=== PATIENT | male | born 2005 | race Two or more races ===

== ENCOUNTER 2023-08-16 22:49 | Emergency (ER) | payer OTHER, SELFPAY ==
[2023-08-16 22:52] VITALS: BP 129/79; PULSE 90; O2SAT 99
[2023-08-16 22:55] VITALS: BP 126/76; PULSE 88; RESP 16; TEMP 37.1; O2SAT 98; BMI 19.7
--- OUTSIDE RECORDS SUMMARY | 2023-08-17 00:01 | XMS_ITS | Continuity of Care Document ---
Author Name Unknown Organization [facility] Address [address] [place] [address]- Care Team Providers Care Director Sales And Trade Marketing Name Role Phone Key ARZOLA, Mira Castillo Primary Care Physician Encounter [facility] Date(s): 02/10/20 - 02/20/20 [facility] [address] [place] [address]- Attending Physician: Malina Oconnor Admitting Physician: AdmtrMalina Referring Physician: Admtr, Ar8 Allergies, Adverse Reactions, Alerts No Known Medication Allergies Substance Reaction Severity Status Other Environmental Allergy 1 Active 1per Mom, seasonal Immunizations Given and Recorded Vaccine Date Status Refusal Reason influenza virus vaccine, inactivated 1 11/12/19 Gi kelsea influenza virus vaccine, inactivated 2 12/17/18 Gi kelsea tetanus/diphtheria/pertussis, acel(Tdap) 08/17/16 Recorded Diphth/pertussis,acel/tetanus/polio 10/07/07 Recor ded Measles/Mumps/Rubella/VaricellaVirusVac 10/07/07 R ecorded diphtheria/tetanus/pertussis, acel(DTaP) 03/13/05 Recorded pneumococcal 13-valent vaccine 03/13/05 Recorded pneumococcal 13-valent vaccine 11/21/04 Recorded pneumococcal 13-valent vaccine 03 Recorded pneumococcal 13-valent vaccine 03 Recorded Haemophilus B Conj Vaccine (oldterm) 11/21/04 Peter rded Haemophilus B Conj Vaccine (oldterm) 06/12/04 Peter rded Haemophilus B Conj Vaccine (oldterm) 03 Peter rded Measles/Mumps/Rubella Virus Vaccine 08/24/04 Recor ded Varicella Virus Vaccine 08/24/04 Recorded Diphth/HepB/Pertussis,Acel/Polio/Tet 03/01/04 Peter rded Diphth/HepB/Pertussis,Acel/Polio/Tet 03 Peter rded Diphth/haemophilus/pertussis/tet/polio 03 Re corded Hepatitis B Vaccine (old term) 03 Recorded Hepatitis B Vaccine (old term) 03 Recorded 1Result Comment: 23582-292-61 2Result Comment: 16392-441-86 Medications Adderall XR 30 mg oral capsule, extended release 1 capsule = 30 mg, By Mouth, Daily in AM, dx: ADHD MassPAT reviewed, # 30 capsule, 0 Refills, Maintenance, 06/02/19 16:11:22 EDT, ER Capsule Start Date: 06/02/19 Stop Date: 07/02/19 Status: Ordered melatonin 3 mg oral tablet 1 tablet = 3 mg, By Mouth, Daily at bedtime, PRN for insomnia, # 60 tablet, 1 Refills, Maintenance,02/13/19 15:13:30 EDT, Tablet Start Date: 02/13/19 Status: Ordered sertraline 25 mg oral tablet 1 tablet = 25 mg, By Mouth, Daily, # 30 tablet, 0 Refills, Maintenance, 05/14/19 14:47:39 EDT Start Date: 05/14/19 Status: Ordered Problem List Condition Effective Dates Status Health Status Inform ant ADHD, predominantly inattent gabe type(Confirmed) Active Learning disability(Confirmed) Active 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
--- OUTSIDE RECORDS SUMMARY | 2023-08-17 00:01 | XMS_ITS | Continuity of Care Document ---
Author Name Unknown Organization [facility] Address [address] [place] [address]- Care Team Providers Care Tariff Expert Name Role Phone Key ARZOLA, Mira Castillo Primary Care Physician Encounter [facility] [place] Date(s): 12/14/19 - 12/24/19 [facility] [address] [place] [address]- Attending Physician: Malina Oconnor Admitting Physician: Admtr, Malina Referring Physician: Admtr, Ar8 Allergies, Adverse Reactions, [...] Vaccine (old term) 03 Recorded 1Result Comment: [id number] 2Result Comment: 80294-449-60 Medications Adderall XR 30 mg oral capsule, [...]
--- OUTSIDE RECORDS SUMMARY | 2023-08-17 00:01 | XMS_ITS | Continuity of Care Document ---
Author Name Unknown Organization [facility] Address [address] [place] [address]- Care Team Providers Care Sour Bleaching Pleater Name Role Phone Rajni Ashley DO Primary Care Physicia n [facility]counter [facility] Date(s): 01/03/23 - 02/02/23 [facility] [address] [place] [address]- Allergies, Adverse Reactions, Alerts No Known Medication Allergies Substance Reaction Severity Status Other Environmental Allergy 1 Active 1per Mom, seasonal Immunizations Given and Recorded Vaccine Date Status Refusal Reason Hepatitis A Pediatric Vaccine 1 12/22/21 Given Hepatitis A Pediatric Vaccine 2 01/17/21 Given influenza virus vaccine, inactivated 3 12/22/21 Gi kelsea influenza virus vaccine, inactivated 4 11/04/20 Gi kelsea influenza virus vaccine, inactivated 5 11/12/19 Gi kelsea influenza virus vaccine, inactivated 6 12/17/18 Gi kelsea SARS-CoV-2 (COVID-19) mRNA BNT-162b2 vac 07/21/21 Recorded SARS-CoV-2 (COVID-19) mRNA BNT-162b2 vac 06/30/21 Recorded Meningococcal Conjugate Vaccine 7 01/17/21 Given Meningococcal Conjugate Vaccine 11/10/14 Recorded Human Papillomavirus Vaccine 01/09/17 Recorded Human Papillomavirus Vaccine 03/07/16 Recorded Human Papillomavirus Vaccine 01/02/16 Recorded tetanus/diphtheria/pertussis, acel(Tdap) 08/17/16 Recorded influ virus vac, H1N1, inactive(oldterm) 10/11/09 Recorded Measles/Mumps/Rubella/VaricellaVirusVac 10/07/07 R ecorded Diphth/pertussis,acel/tetanus/polio 10/07/07 Recor ded pneumococcal 13-valent vaccine 03/13/05 Recorded pneumococcal 13-valent vaccine 11/21/04 Recorded pneumococcal 13-valent vaccine 03 Recorded pneumococcal 13-valent vaccine 03 Recorded diphtheria/tetanus/pertussis, acel(DTaP) 03/13/05 Recorded Haemophilus B Conj Vaccine (oldterm) 11/21/04 Peter rded Haemophilus B Conj Vaccine (oldterm) 06/12/04 Peter rded Haemophilus B Conj Vaccine (oldterm) 03 Peter rded Varicella Virus Vaccine 08/24/04 Recorded Measles/Mumps/Rubella Virus Vaccine 08/24/04 Recor ded Diphth/HepB/Pertussis,Acel/Polio/Tet 03/01/04 Peter rded Diphth/HepB/Pertussis,Acel/Polio/Tet 03 Peter rded Diphth/haemophilus/pertussis/tet/polio 03 Re corded Hepatitis B Vaccine (old term) 03 Recorded Hepatitis B Vaccine (old term) 03 Recorded 1Result Comment: 3130-5597-51 2Result Comment: [id number] 3Result Comment: 13950-361-71 4Result Comment: 97596-193-70 5Result Comment: 10398-521-41 6Result Comment: 09837-079-73 7Result Comment: [id number] Medications Nicotine 2 mg gum 1 each = 2 mg, Chew, Every 2 hours, PRN as needed for smoking cessation, Use one gum up to every two hours for nicotine replacement therapy. Do not exceed 12 pieces in any 24 hour period. Take as directed on package labeling, # 40 each, 1 Refills, Stormy... Start Date: 01/02/23 Status: Ordered nicotine 2 mg oral transmucosal lozenge 1 lozenge = 2 mg, By Mouth, Every 2 hours, Take one lozenge up to every 2 hours for nicotine replacement therapy. Do not exceed 12 lozenges in a 24 hour period. As directed on package labeling. Do not chew or swallow whole., # 72 lozenge, 1 Refills,... Start Date: 01/02/23 Status: Ordered Nicotine 7 mg/24 hour patch 1 patch, Topically, Daily, Apply in the morning. Take off before sleep., # 30 patch, 1 Refills, Maintenance, 01/02/23 8:42:00 EST, Patch, [id number], Partial fill upon patient request if the prescription is for a schedule II opioid drug., 1 pa... Start Date: 01/02/23 Status: Ordered Problem List Condition Confirmation Course Effective Dates Status H ealth Status Informant ADHD, predominantly inattentive type Confirmed Active Learning disability Confirmed Active Insomnia due to drug Confirmed Active Healthy child on routine physical examination Confirmed Active Social History Social History Type Response Smoking Status Never (less than 100 in lifetime); Tobacco user in household: No entered on: 12/17/18 Sex Patient Care team information Care Team Personnel Name: Rajni Ashley DO Position: [facility] Resident Member Role: PCP Address: Address: [address] [place] [address] [place] [address]- Care Team Related Persons Name: MARA HARRIS Address: home [address] [place] [address] Name: JAYCEE LIGHT Address: [place] [address] [place] [address]
--- OUTSIDE RECORDS SUMMARY | 2023-08-17 00:01 | XMS_ITS | Continuity of Care Document ---
Author Name Unknown Organization [facility] Address [address] [place] [address]- Care Team Providers Care Account Manager Employee Benefits Name Role Phone Key ARZOLA, Mira Castillo Primary Care Physician ( [phone] [facility]counter [facility] Date(s): 05/10/21 - 06/09/21 [facility] [address] [place] [address]- Attending Physician: AdmMalina freeman Admitting Physician: Admtr, Ar8 Referring Physician: Admtr, Ar8 Allergies, Adverse Reactions, Alerts No Known Medication Allergies Substance Reaction Severity Status Other Environmental Allergy 1 Active 1per Mom, seasonal Immunizations Given and Recorded Vaccine Date Status Refusal Reason Hepatitis A Pediatric Vaccine 1 01/17/21 Given Meningococcal Conjugate Vaccine 2 01/17/21 Given Meningococcal Conjugate Vaccine 11/10/14 Recorded influenza virus vaccine, inactivated 3 11/04/20 Gi kelsea influenza virus vaccine, inactivated 4 11/12/19 Gi kelsea influenza virus vaccine, inactivated 5 12/17/18 Gi kelsea Human Papillomavirus Vaccine 01/09/17 Recorded Human Papillomavirus [...] Vaccine (old term) 03 Recorded 1Result Comment: [id number] 2Result Comment: [id number] 3Result Comment: 54525-580-55 4Result Comment: 68000-846-68 5Result Comment: 00176-757-30 Medications Adderall XR 30 mg oral capsule, extended release 1 capsule = 30 mg, By Mouth, Daily in AM, dx: ADHD MassPAT reviewed, # 30 capsule, 0 Refills, Maintenance, 06/02/19 16:11:22 EDT, ER Capsule Start Date: 06/02/19 Stop Date: 07/02/19 Status: Ordered ibuprofen 200 mg oral tablet 600 mg, 3, tablet, By Mouth, Every 6 hours, PRN, back pain, # 100 tablet, Refills 0, Tot. Refills 0, Maintenance, Other, 05/10/21 15:30:00 EDT, Route to Pharmacy Electronically, [facility]/pharmacy #[id number], Partial fill upon patient request if the prescription... 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
--- OUTSIDE RECORDS SUMMARY | 2023-08-17 00:01 | XMS_ITS | Continuity of Care Document ---
Author Name Unknown Organization [facility] Address [address] [place] [address]- Care Team Providers Care Enamel Dipper Name Role Phone Rajni Ashley DO Primary Care Physicia n Encounter [facility] Date(s): 02/13/23 - 03/15/23 [facility] [address] [place] [address]- Allergies, Adverse Reactions, Alerts No Known Medication [...] Vaccine (old term) 03 Recorded 1Result Comment: 4258-8630-56 2Result Comment: [id number] 3Result Comment: 39906-961-78 4Result Comment: 71309-900-42 5Result Comment: 00629-054-59 6Result Comment: 61892-103-08 7Result Comment: [id number] Medications Nicotine 2 mg gum 1 each [...] Refills, Maintenance, 01/02/23 8:42:00 EST, Patch, [id number], Partial fill upon patient request if the [...] Team Personnel Name: Rajni Ashley DO Position: [facility] Resident Member Role: PCP Address: Address: [address] [place] [address] [place] [address]- Care Team Related Persons Name: MARA HARRIS Address: home [address] [place] [address] Name: JAYCEE LIGHT Address: [place] [address] [place] [address]
--- OUTSIDE RECORDS SUMMARY | 2023-08-17 00:01 | XMS_ITS | Continuity of Care Document ---
Author Name Unknown Organization [facility] Address [address] [place] [address]- Care Team Providers Care Nurse Wound Care Name Role Phone Key ARZOLA, Mira Castillo Primary Care Physician [facility] Date(s): 12/16/20 - 01/15/21 [facility] [address] [place] [address] Allergies, Adverse Reactions, Alerts No Known Medication Allergies Substance Reaction Severity Status Other Environmental Allergy 1 Active 1per Mom, seasonal Immunizations Given and Recorded Vaccine Date Status Refusal Reason influenza virus vaccine, inactivated 1 11/04/20 Gi kelsea influenza virus vaccine, inactivated 2 11/12/19 Gi kelsea influenza virus vaccine, inactivated 3 12/17/18 Gi kelsea tetanus/diphtheria/pertussis, acel(Tdap) 08/17/16 Recorded Measles/Mumps/Rubella/VaricellaVirusVac 10/07/07 R ecorded Diphth/pertussis,acel/tetanus/polio 10/07/07 [...] Vaccine (old term) 03 Recorded 1Result Comment: 59012-932-03 2Result Comment: 21065-348-95 3Result Comment: 38897-826-01 Medications Adderall XR 30 mg oral capsule, extended release 1 capsule = 30 mg, By Mouth, Daily in AM, dx: ADHD MassPAT reviewed, # 30 capsule, 0 Refills, Maintenance, 06/02/19 16:11:22 EDT, ER Capsule Start Date: 06/02/19 Stop Date: 07/02/19 Status: Ordered MiraLax oral powder for reconstitution = 17 Gm, By Mouth, Daily, for 30 days, dissolve in water before taking, # 527 Gm, 5 Refills, Acute 04/17/21 9:43:00 EDT, 10/19/20 9:43:00 EST, REC Powder, [facility]/pharmacy #[id number], 17 Gm By Mouth Daily,[id number],Instr:dissolve in water before taking, 179, cm... Start Date: 10/19/20 Stop Date: 04/17/21 Status: Ordered Problem List Condition Effective Dates [...]
--- OUTSIDE RECORDS SUMMARY | 2023-08-17 00:01 | XMS_ITS | Continuity of Care Document ---
Author Name Unknown Organization [facility] Address [address] [place] [address]- Care Team Providers Care Gang Leader Name Role Phone Rajni Ashley DO Primary Care Physicia n [facility]counter [facility] Date(s): 01/22/23 - 02/21/23 [facility] [address] [place] [address]- Allergies, Adverse Reactions, Alerts No Known Medication [...] Vaccine (old term) 03 Recorded 1Result Comment: 8150-5097-99 2Result Comment: [id number] 3Result Comment: 20433-740-15 4Result Comment: 68674-926-44 5Result Comment: 57090-011-93 6Result Comment: 72636-425-14 7Result Comment: [id number] Medications Nicotine 2 mg gum 1 each [...] Refills, Maintenance, 01/02/23 8:42:00 EST, Patch, [id number], Partial fill upon patient request if the [...] Team Personnel Name: Rajni Ashley DO Position: [facility] Resident Member Role: PCP Address: Address: [address] [place] [address] [place] [address]- Care Team Related Persons Name: MARA HARRIS Address: [address] [place] [address] Name: JAYCEE LIGHT Address: [address] [place] [address]
--- OUTSIDE RECORDS SUMMARY | 2023-08-17 00:02 | XMS_ITS | Continuity of Care Document ---
Author Name Unknown Organization [facility] ter Address [address] [place] [address]- Care Team Providers Care Roads Supervisor Name Role Phone Key ARZOLA, Mira Castillo Primary Care Physician [facility] Date(s): 07/13/20 - 07/14/[address] [address]- [facility] Encounter Diagnosis Acute constipation(Final) - 07/13/20 Discharge Disposition: A-D/C Home Attending Physician: Blayne Morales MD Admitting Physician: Blayne Morales MD Referring Physician: Not on Staff, Referring MD Allergies, Adverse Reactions, Alerts No Known Medication [...] Vaccine (old term) 03 Recorded 1Result Comment: 86834-914-94 2Result Comment: 94479-674-03 Medications Adderall XR 30 mg oral capsule, [...] EDT, Tablet Start Date: 02/13/19 Status: Ordered MiraLax oral powder for reconstitution = 17 Gm, By Mouth, Daily, for 30 days, dissolve in water before taking, # 510 Gm, 0 Refills, Acute 08/13/20 0:05:00 EDT, 07/14/20 0:05:00 EDT, REC Powder, [facility]/pharmacy #[id number], 17 Gm By Mouth Daily,[id number],Instr:dissolve in water before taking, 179, cm... 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 Vital Signs Most recent to oldest [Reference Range]: 1 2 3 Height 179 cm (07/14/20 1:28 AM) 179 cm (07/13/20 11:53 PM) 179 cm (07/13/20 9:14 PM) Weight 64.9 kg (07/14/20 1:28 AM) 64.9 kg (07/13/20 11:53 PM) 64.9 kg (07/13/20 9:14 PM) Oxygen Saturation [94-100 %] 100 % (07/14/20 1:28 AM) 100 % (07/13/20 11:53 PM) 100 % (07/13/20 9:14 PM) Pulse Rate [55-90 bpm] 71 bpm (07/14/20:28 AM) 72 bpm (07/13/20 11:53 PM) 83 bpm (07/13/20 9:14 PM) Body Mass Index [18.5-24.99] 20.26 (07/14/20:28 AM) 20.26 (07/13/20 11:53 PM) 20.26 (07/13/20 9:14 PM) Blood Pressure [80-130/50-80 mm Hg] 132/58mm Hg *H* (07/14/20:28 AM) 136/62mm Hg *H* (07/13/20 11:53 PM) 131/67mm Hg *H* (07/13/20 9:14 PM) Respiratory Rate [16-30 br/min] 17 br/min (07/14/20 1:28 AM) 16 br/min (07/13/20 11:53 PM) 20 br/min (07/13/20 9:14 PM) Temperature [96.8-100.4 DegF] 98.1 DegF (07/14/20:28 AM) 98.6 DegF (07/13/20 11:53 PM) 98.8 DegF (07/13/20 9:14 PM) Mode of Delivery (Oxygen) Room air (07/14/20 1:28 AM) Room air (07/13/20 11:53 PM) Room air (07/13/20 9:14 PM) Blood pressure sites Arm, left (07/14/20 1:28 AM) Arm, left (07/13/20 11:53 PM) Arm, left (07/13/20 9:14 PM) Temperature Route Oral (07/14/20 1:28 AM) Oral (07/13/20 11:53 PM) Oral (07/13/20 9:14 PM) Dry Weight 64.9 kg (07/14/20 1:28 AM) 64.9 kg (07/13/20 11:53 PM) 64.9 kg (07/13/20 9:14 PM) Dry Weight Obtained Via Standing scale (07/13/20 9:14 PM) Social History Social History Type Response Smoking Status Never (less than 100 in lifetime); Tobacco user in household: No entered on: 12/17/18 Sex
--- OUTSIDE RECORDS SUMMARY | 2023-08-17 00:02 | XMS_ITS | Continuity of Care Document ---
Author Name Unknown Organization [facility] ter Address [address] [place] [address]- Care Team Providers Care Scientific Specialist Name Role Phone Key ARZOLA, Mira Castillo Primary Care Physician Encounter [facility] [place] Date(s): 11/29/21 - 11/30/[address] [address]- Discharge Disposition: A-D/C Walkout Attending Physician: Not on Staff, Attending MD Admitting Physician: Not on Staff, Admitting MD Referring Physician: Not on Staff, Referring [...] Vaccine (old term) 03 Recorded 1Result Comment: [id number] 2Result Comment: [id number] 3Result Comment: 46765-786-39 4Result Comment: 81354-701-77 5Result Comment: 02879-983-98 Medications Adderall XR 30 mg oral capsule, [...] 05/10/21 15:30:00 EDT, Route to Pharmacy Electronically, [facility]/pharmacy #[id number], Partial fill upon patient request if the prescription... 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 Healthy child on routine phy sical examination(Confirmed) Active Vital Signs Most recent to oldest [Reference Range]: 1 2 Oxygen Saturation [94-100 %] 99 % (11/30/21 2:15 AM) 100 % (11/30/21 12:19 AM) Pulse Rate [55-90 bpm] 95 bpm *H* (11/30/21 2:15 AM) 98 bpm *H* (11/30/21 12:19 AM) Blood Pressure [71-110/30-71 mm Hg] 129/ 81mm Hg *H* (11/30/21 2:15 AM) 127/91mm Hg *H* (11/30/21 12:19 AM) Respiratory Rate [16-30 br/min] 18 br/mi n (11/30/21 2:15 AM) 16 br/min (11/30/21 12:19 AM) Temperature [96.8-100.4 DegF] 98.0 DegF (11/30/21 2:15 AM) 99.3 DegF (11/30/21 12:19 AM) Mode of Delivery (Oxygen) Room air (11/30/21 2:15 AM) Room air (11/30/21 12:19 AM) Blood pressure sites Arm, right (11/30/21 2:15 AM) Temperature Route Oral (11/30/21 2:15 AM) Oral (11/30/21 12:19 AM) Social History Social History Type Response Smoking Status Never (less than 100 in lifetime); Tobacco user in household: No entered on: 12/17/18 Sex
--- OUTSIDE RECORDS SUMMARY | 2023-08-17 00:02 | XMS_ITS | Continuity of Care Document ---
Author Name Unknown Organization [facility] Address [address] [place] [address]- Care Team Providers Care Senior Merchandiser Name Role Phone Key ARZOLA, Mira Castillo Primary Care Physician [facility] Date(s): 04/04/21 - 05/04/21 [facility] [address] [place] [address] Allergies, Adverse Reactions, Alerts No Known Medication [...] Vaccine (old term) 03 Recorded 1Result Comment: [id number] 2Result Comment: [id number] 3Result Comment: 50891-598-70 4Result Comment: 21217-797-40 5Result Comment: 06423-113-92 Medications Adderall XR 30 mg oral capsule, extended release 1 capsule = 30 mg, By Mouth, Daily in AM, dx: ADHD MassPAT reviewed, # 30 capsule, 0 Refills, Maintenance, 06/02/19 16:11:22 EDT, ER Capsule Start Date: 06/02/19 Stop Date: 07/02/19 Status: Ordered Problem List Condition Effective Dates [...]
--- OUTSIDE RECORDS SUMMARY | 2023-08-17 00:02 | XMS_ITS | Continuity of Care Document ---
Author Name Unknown Organization [facility] Address [address] [place] [address]- Care Team Providers Care Vet Assistant Name Role Phone Key ARZOLA, Mira Castillo Primary Care Physician [facility] Date(s): 11/08/20 - 01/14/21 [facility] [address] [place] [address]- Attending Physician: Mason Jackson MD Admitting Physician: Mason Jackosn MD Allergies, Adverse Reactions, Alerts No Known [...] Vaccine (old term) 03 Recorded 1Result Comment: 93907-052-36 2Result Comment: 45800-361-50 3Result Comment: 11555-686-52 Medications Adderall XR 30 mg oral capsule, [...] 9:43:00 EDT, 10/19/20 9:43:00 EST, REC Powder, [facility]/pharmacy #[id number], 17 Gm By Mouth Daily,[id number],Instr:dissolve in water before taking, 179, cm... Start [...]
--- OUTSIDE RECORDS SUMMARY | 2023-08-17 00:02 | XMS_ITS | Continuity of Care Document ---
Author Name Unknown Organization [facility] Address [address] [place] [address]- Care Team Providers Care Foreclosure Paralegal Name Role Phone Key ARZOLA, Mira Castillo Primary Care Physician [facility] Date(s): 12/22/21 - 01/21/22 [facility] [address] [place] [address]- Attending Physician: AdmMalina freeman Admitting Physician: Admtr, [...] virus vaccine, inactivated 6 12/17/18 Gi kelsea Meningococcal Conjugate Vaccine 7 01/17/21 Given Meningococcal [...] Vaccine (old term) 03 Recorded 1Result Comment: [id number] 2Result Comment: [id number] 3Result Comment: 32411-660-69 4Result Comment: 64994-883-22 5Result Comment: 52907-760-05 6Result Comment: 53291-794-42 7Result Comment: [id number] Problem List Condition Effective Dates Status Health Status Inform ant ADHD, predominantly inattent gabe type(Confirmed) Active Learning disability(Confirmed) Active 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
--- OUTSIDE RECORDS SUMMARY | 2023-08-17 00:02 | XMS_ITS | Continuity of Care Document ---
Author Name Unknown Organization [facility] Address [address] [place] [address]- Care Team Providers Care Finishing Supervisor Name Role Phone Key ARZOLA, Mira Castillo Primary Care Physician [facility] Date(s): 08/19/19 - 11/26/19 [facility] [address] [place] [address]- Attending Physician: Not on Staff, Attending MD Allergies, Adverse Reactions, Alerts No Known [...] Vaccine (old term) 03 Recorded 1Result Comment: 47914-458-62 2Result Comment: 61666-755-69 Medications Adderall XR 30 mg oral capsule, [...]
--- OUTSIDE RECORDS SUMMARY | 2023-08-17 00:02 | XMS_ITS | Continuity of Care Document ---
Author Name Unknown Organization [facility] Address [address] [place] [address]- Care Team Providers Care Malted Milk Mixer Name Role Phone Rajni Ashley DO Primary Care Physicia n Encounter [facility] Date(s): 10/23/22 - 01/09/23 [facility] [address] [place] [address]- Attending Physician: Erika Zabala MD Admitting Physician: Erika Zabala MD Allergies, Adverse Reactions, Alerts No Known [...] Vaccine (old term) 03 Recorded 1Result Comment: [id number] 2Result Comment: [id number] 3Result Comment: 80065-190-82 4Result Comment: 03175-986-79 5Result Comment: 53404-425-55 6Result Comment: 70814-545-10 7Result Comment: [id number] Medications Nicotine 2 mg gum 1 each [...] Refills, Maintenance, 01/02/23 8:42:00 EST, Patch, [id number], Partial fill upon patient request if the [...] Team Personnel Name: Rajni Ashley DO Position: [facility] Resident Member Role: PCP Address: Address: [address] [place] [address] [place] [address]- Care Team Related Persons Name: MARA HARRIS Address: home [address] [place] [address] Name: JAYCEE LIGHT Address: home [address] [place] [address]
--- OUTSIDE RECORDS SUMMARY | 2023-08-17 00:02 | XMS_ITS | Continuity of Care Document ---
Author Name Unknown Organization [facility] Address [address] [place] [address]- Care Team Providers Care Ophthalmic Lens Inspector Name Role Phone Key ARZOLA, Mira Castillo Primary Care Physician Encounter [facility] Date(s): 04/11/21 - 05/11/21 [facility] [address] [place] [address]- Allergies, Adverse Reactions, Alerts No Known Medication [...] Vaccine (old term) 03 Recorded 1Result Comment: [id number] 2Result Comment: [id number] 3Result Comment: 39419-444-11 4Result Comment: 19252-813-44 5Result Comment: 22813-752-12 Medications Adderall XR 30 mg oral capsule, [...] 05/10/21 15:30:00 EDT, Route to Pharmacy Electronically, [facility] #[id number], Partial fill upon patient request if the [...]
--- OUTSIDE RECORDS SUMMARY | 2023-08-17 00:02 | XMS_ITS | Continuity of Care Document ---
Author Name Unknown Organization [facility] Address [address] [place] [address]- Care Team Providers Care Manager Medical Writing Name Role Phone Key ARZOLA, Mira Castillo Primary Care Physician [facility] Date(s): 03/30/21 - 04/29/21 [facility] [address] [place] [id number] Allergies, Adverse Reactions, Alerts No [...] Vaccine (old term) 03 Recorded 1Result Comment: [id number] 2Result Comment: [id number] 3Result Comment: 35534-434-75 4Result Comment: 02251-731-49 5Result Comment: 25595-892-00 Medications Adderall XR 30 mg oral capsule, [...]
--- OUTSIDE RECORDS SUMMARY | 2023-08-17 00:02 | XMS_ITS | Continuity of Care Document ---
Author Name Unknown Organization [facility] Address [address] [place] [address]- Care Team Providers Care Buckle Assembler Name Role Phone Key ARZOLA, Mira Castillo Primary Care Physician Encounter [facility] Date(s): 01/17/21 - 02/16/21 [facility] [address] [place] [address]- Attending Physician: Admtr, [id number] Admitting Physician: Admtr, [id number] Referring Physician: Admtr, [id number] Allergies, Adverse Reactions, [...] Vaccine (old term) 03 Recorded 1Result Comment: [id number] 2Result Comment: [id number] 3Result Comment: 59186-156-22 4Result Comment: 13276-317-42 5Result Comment: 44080-614-26 Medications Adderall XR 30 mg oral capsule, [...] 9:43:00 EDT, 10/19/20 9:43:00 EST, REC [place], [facility]/pharmacy #[id number], [address] Daily,[id number],Instr:dissolve in water before taking, 179, cm... Start [...]
--- OUTSIDE RECORDS SUMMARY | 2023-08-17 00:02 | XMS_ITS | Continuity of Care Document ---
Author Name Unknown Organization [facility] Address [address] [place] [address]- Care Team Providers Care Centerless Grinder Name Role Phone Key ARZOLA, Mira Castillo Primary Care Physician [facility]counter [facility] Date[facility]s): 12/10/19 - 03/11/20 [facility] [address] [place] [address]- Attending Physician: Not on Staff, Attending MD [...] Vaccine (old term) 03 Recorded 1Result Comment: 09123-625-20 2Result Comment: 39932-510-29 Medications Adderall XR 30 mg oral capsule, [...]
--- OUTSIDE RECORDS SUMMARY | 2023-08-17 00:03 | XMS_ITS | Continuity of Care Document ---
Author Name Unknown Organization [facility] ter Address [address] [place] [address]- Care Team Providers Care Regional Vice President Life Sales Name Role Phone Key ARZOLA, Mira Castillo Primary Care Physician [facility]counter [facility] Date(s): 11/16/19 - 11/17/[address] [address]- [facility] Discharge Disposition: A-D/C Home Attending Physician: Shai Nash MD Admitting Physician: Shai Nash MD Referring Physician: Not on Staff, Referring [...] Vaccine (old term) 03 Recorded 1Result Comment: 47180-881-56 2Result Comment: 25580-018-09 Medications Adderall XR 30 mg oral capsule, [...] disability(Confirmed) Active 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 Evaluate for fracture. COMPARISON: None. FINDINGS: No fractures or bone lesions. No arthritic changes. Possible soft tissue swelling fourth digit around the proximal interphalangeal joint. IMPRESSION: Possible soft tissue swelling the third digit. No fracture or malalignment. WSN: [id number] Dictated By: William Ricketts MD Dictated Date/Time: 11/17/19 7:33 am Reviewed By: William Ricketts MD Signed By: William Ricketts MD Signed Date/Time: 11/17/19 7:33 am Transcribed By: POLO Transcribed Date/Time: 11/17/19 7:27 am Vital Signs Most recent to oldest [Reference Range]: 1 2 Height 171 cm (11/17/19 11:00 AM) 171 cm (11/16/19 10:29 PM) Weight 52.5 kg (11/17/19 11:00 AM) 52.5 kg (11/16/19 10:29 PM) Oxygen Saturation [94-100 %] 100 % (11/17/19 11:00 AM) 98 % (11/16/19 10:29 PM) Pulse Rate [55-90 bpm] 84 bpm (11/17/19 11:00 AM) 81 bpm (11/16/19 10:29 PM) Body Mass Index [18.5-24.99] 17.95 *L* (11/17/19 11:00 AM) 17.95 *L* (11/16/19 10:29 PM) Blood Pressure [80-130/50-80 mm Hg] 112/ 62mm Hg (11/17/19 11:00 AM) 117/58mm Hg (11/16/19 10:29 PM) Respiratory Rate [16-30 br/min] 18 br/mi n (11/16/19 10:29 PM) Temperature [96.8-100.4 DegF] 97.6 DegF (11/17/19 11:00 AM) 98.0 DegF (11/16/19 10:29 PM) Mode of Delivery (Oxygen) Room air (11/17/19 11:00 AM) Room air (11/16/19 10:29 PM) Blood pressure sites Arm, right (11/17/19 11:00 AM) Arm, left (11/16/19 10:29 PM) Temperature Route Oral (11/17/19 11:00 AM) Oral (11/16/19 10:29 PM) Dry Weight 52.5 kg (11/17/19 11:00 AM) 52.5 kg (11/16/19 10:29 PM) Weight Obtained Via Standing scale (11/16/19 10:29 PM) Dry Weight Obtained Via Standing scale (11/16/19 10:29 PM) Social History Social History Type Response Smoking Status Never (less than 100 in lifetime); Tobacco user in household: No entered on: 12/17/18 Sex
--- OUTSIDE RECORDS SUMMARY | 2023-08-17 00:03 | XMS_ITS | Continuity of Care Document ---
Author Name Unknown Organization [facility] ter Address [address] [place] [address]- Care Team Providers Care Proposal Editor Name Role Phone Key ARZOLA, Mira Castillo Primary Care Physician ( [phone] Encounter [facility] Date(s): 06/29/21 - 06/29/[address] [address]- Discharge Disposition: A-D/C Home Attending Physician: Amanda Pelaez MD Admitting Physician: Amanda Pelaez MD Referring Physician: Not on Staff, Referring [...] Vaccine (old term) 03 Recorded 1Result Comment: [id number] 2Result Comment: [id number] 3Result Comment: 50896-612-95 4Result Comment: 77959-261-15 5Result Comment: 22604-739-43 Medications Adderall XR 30 mg oral capsule, [...] 05/10/21 15:30:00 EDT, Route to Pharmacy Electronically, [facility]/pharmacy #[id number], Partial fill upon patient request if the prescription... 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 Healthy child on routine phy sical examination(Confirmed) Active Vital Signs Most recent to oldest [Reference Range]: 1 2 3 Height 179 cm (06/29/21 2:26 PM) 179 cm (06/29/21 11:59 AM) 179 cm (06/29/21 10:07 AM) Weight 65.0 kg (06/29/21 2:26 PM) 65.0 kg (06/29/21 11:59 AM) 65.0 kg (06/29/21 10:07 AM) Oxygen Saturation [94-100 %] 100 % (06/29/21 2:26 PM) 99 % (06/29/21 11:59 AM) 100 % (06/29/21 10:07 AM) Pulse Rate [55-90 bpm] 72 bpm (06/29/21 2:26 PM) 65 bpm (06/29/21 11:59 AM) 75 bpm (06/29/21 10:07 AM) Body Mass Index [18.5-24.99] 20.29 (06/29/21 2: PM) 20.29 (06/29/21 11:59 AM) 20.29 (06/29/21 10:07 AM) Blood Pressure [80-130/50-80 mm Hg] 119/59mm Hg (06/29/21 2: PM) 124/63mm Hg (06/29/21 11:59 AM) 117/64mm Hg (06/29/21 10:07 AM) Respiratory Rate [16-30 br/min] 18 br/min (06/29/21 2:26 PM) 18 br/min (06/29/21 11:59 AM) 18 br/min (06/29/21 10:07 AM) Temperature [96.8-100.4 DegF] 98.6 DegF (06/29/21 2: PM) 97.5 DegF (06/29/21 11:59 AM) 98.0 DegF (06/29/21 10:07 AM) Mode of Delivery (Oxygen) Room air (06/29/21 2:26 PM) Room air (06/29/21 11:59 AM) Room air (06/29/21 10:07 AM) Blood pressure sites Arm, right (06/29/21 2:26 PM) Arm, left (06/29/21 11:59 AM) Arm, right (06/29/21 10:07 AM) Temperature Route Temporal (06/29/21 2:26 PM) Oral (06/29/21 11:59 AM) Oral (06/29/21 10:07 AM) Dry Weight 65.0 kg (06/29/21 2:26 PM) 65.0 kg (06/29/21 11:59 AM) 65.0 kg (06/29/21 10:07 AM) Weight Obtained Via Standing scale (06/29/21 6:30 AM) Dry Weight Obtained Via Standing scale (06/29/21 6:30 AM) Social History Social History Type Response Smoking Status Never (less than 100 in lifetime); Tobacco user in household: No entered on: 12/17/18 Sex
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
--- OUTSIDE RECORDS SUMMARY | 2023-08-17 00:03 | XMS_ITS | Continuity of Care Document ---
Author Name Unknown Organization [facility] Address [address] [place] [address]- Care Team Providers Care Weight And Balance Control Agent Name Role Phone Key ARZOLA, Mira Castillo Primary Care Physician Encounter [facility] Date(s): 11/12/19 - 11/22/19 [facility] [address] [place] [address]- Attending Physician: Malina Oconnor Admitting Physician: AdmMalina freeman Referring Physician: AdmtrMalina Allergies, Adverse Reactions, Alerts No Known Medication [...] Vaccine (old term) 03 Recorded 1Result Comment: 36005-465-97 2Result Comment: 50178-127-32 Medications Adderall XR 30 mg oral capsule, [...]
--- OUTSIDE RECORDS SUMMARY | 2023-08-17 00:03 | XMS_ITS | Continuity of Care Document ---
Author Name Unknown Organization [facility] Address [address] [place] [address]- Care Team Providers Care Fur Blowing Machine Attendant Name Role Phone Key ARZOLA, Mira Castillo Primary Care Physician ( [phone] Encounter [facility] Date(s): 12/09/19 - 12/16/[address] [address]- [facility] Attending Physician: Bronson Barraza MD Allergies, Adverse Reactions, Alerts No Known [...] Vaccine (old term) 03 Recorded 1Result Comment: 66942-815-03 2Result Comment: 02852-150-33 Medications Adderall XR 30 mg oral capsule, [...]
--- OUTSIDE RECORDS SUMMARY | 2023-08-17 00:03 | XMS_ITS | Continuity of Care Document ---
Author Name Unknown Organization [facility] Address [address] [place] [address]- Care Team Providers Care Lead Presser Name Role Phone Key ARZOLA, Mira Castillo Primary Care Physician Encounter [facility] Date(s): 01/03/21 - 02/02/21 [facility] [address] [place] [address]- Allergies, Adverse Reactions, Alerts No Known Medication [...] Vaccine (old term) 03 Recorded 1Result Comment: [id number] 2Result Comment: [id number] 3Result Comment: 79747-341-50 4Result Comment: 78737-925-78 5Result Comment: 78853-273-91 Medications Adderall XR 30 mg oral capsule, [...] 9:43:00 EDT, 10/19/20 9:43:00 EST, [facility], [facility]/pharmacy #[id number], [address]outh Daily,[id number],Instr:dissolve in water before taking, 179, cm... Start [...]
--- NOTE | 2023-08-17 00:25 | ED_ITS ---
HPI - General Adult General Chief complaint: General Medical Stated complaint: s/p choking Time Seen by Provider: 08/17/23 00:24 Source: patient History of Present Illness HPI narrative: 18-year-old male who denies significant past medical history presents for felisha luwillem after an episode of choking. Patient states he was eating steak at approximately 10:00 p.m. when he was laughing and ?fooling around?. Patient states that he had sat down and felt the piece of steak get lodged in his throat. He attempted to cough it out in a family member attempted to finger sweep the steak out but was unsuccessful. EMS was contacted and the Heimlich was performed, dislodging the piece of steak. Patient states that his symptoms resolve however was complaining of sore throat after the incident. Since that time he has not had any drooling, no chest pain, no abdominal pain or any other symptoms at this time. He has not had anything to eat or drink since then. No history of similar symptoms. Related Data Allergies Allergy/AdvReac Type Severity Reaction Status Date / Time No Known Allergies Allergy Verified 08/16/23 23:00 Review of Systems Review of Systems: Constitutional: No Weight loss, No Fever, No Chills, No Night Sweats, No Fatigue, No Malaise ENT/Mouth: No Ear Pain, No Nasal Congestion, + sore throat, No Rhinorrhea, No Swallowing Difficulty Eyes: No Eye Pain, No Swelling, No Redness, No Foreign Body, No Discharge, No Vision Changes Cardiovascular: No Chest Pain, No SOB, No Edema, No Palpitations Respiratory: No Cough, No Sputum, No Dyspnea Gastrointestinal: No Nausea, No Vomiting, No Diarrhea, No Constipation, No Abdominal pain Neuro: No Weakness, No Numbness, No Paresthesias, No Loss of Consciousness, No Dizziness, No Headache PMFSH Social History Social History Advance Directives: No Advance Directives Information Provided: No Physical Exam ED Vital Signs: Vital Signs - 24 hr 08/16/23 22:55 Temperature 98.8 F Pulse Rate 88 Respiratory Rate 16 Blood Pressure 126/76 Pulse Oximetry 98 Oxygen Delivery Method Room Air BMI result Body Mass Index 19.7 Const General: cooperative, alert, awake and Physically active Orientation/consciousness: patient oriented x3 HENMT Other: Patient speaks full clear sentences. There is no drooling. No tongue elevation or edema. Slight erythema to the posterior pharynx but no evidence of obvious trauma. Tolerate secretions. General nose exam: Normal nasal mucous membranes and turbinates present Eyes General: appearance normal, both eyes and all related structures Pupils: Equal, round and reactive pupils present Resp Effort & Inspection: normal respiratory effort Auscultation: clear to auscultation bilaterally Cardio Rate: regular rate Rhythm: regular rhythm GI Palpation (GI): Soft to palpation and nontender Auscultation: normal bowel sounds Neuro General: patient oriented x3 Cranial nerves: Yes Equal, round and reactive pupils present Medical Decision Making Medical Decision Making MDM Narrative: 18-year-old male status post choking on a piece of steak, dislodged after the Heimlich maneuver. Patient has been asymptomatic since that time. Airway is patent, speaking full clear sentences without any drooling. Patient was able to tolerate drinking water without difficulty at the bedside. Patient requesting discharge home. Reviewed all discharge instructions, including doing all his food properly. No further questions at this time. Differential Diagnosis Differential Diagnoses: The differential diagnosis associated with the presentation includes Aspiration pneumonia Upper airway foreign body Pharyngitis Esophageal obstruction Discharge Plan Discharge Clinical Impression: Choking due to food (regurgitated) Qualifiers: Encounter type: sequela Qualified Code(s): T17.320S - Food in larynx causing asphyxiation, sequela Patient Disposition: Home, Self-Care Instructions: Performing the Heimlich Maneuver (ED) Additional Instructions: Be sure to chew your food thoroughly. Watch for any worsening of symptoms, return immediately to the emergency department.
== END 2023-08-17 00:54 | disposition home or self-care (01) ==
PROVIDERS: Emergency Provider Emergency Medicine Emergency Medical Services
DX: T17.310A Gastric contents in larynx causing asphyxiation, initial encounter (principal); Y93.89 Activity, other specified; Y92.9 Unspecified place or not applicable; Y99.9 Unspecified external cause status
CPT/HCPCS: 99283

== ENCOUNTER 2024-02-09 22:04 | Emergency (ER) | payer OTHER, SELFPAY ==
[2024-02-09 22:22] VITALS: BP 114/66; PULSE 67; RESP 18; TEMP 37.1; O2SAT 99; BMI 20.7
[2024-02-09 23:48] LABS: MANUAL DIFF FLAG NO
[2024-02-09 23:49] LABS: Basophils Percent Auto 0.8 % (0-2); Eosinophils Absolute Auto 0.2 X10*3/uL (0.0-0.4); Eosinophils Percent Auto 2.9 % (0-4); Hematocrit 39.4 % (42.0-52.0); Hemoglobin 13.5 g/dl (14.0-18.0); Imm Gran Abs Auto 0.01 X10*3/uL (0.00-0.03); Imm Gran Pct Auto 0.2 % (0.0-0.4); Lymphocytes Absolute Auto 2.2 X10*3/uL (1.2-4.9); Lymphocytes Percent Auto 41.7 % (20-40); Mean Corpuscular HGB Conc 34.3 g/dl (31.0-36.0); Mean Corpuscular Hemoglobin 29.7 pg (27.0-33.0); Mean Corpuscular Volume 86.6 fL (80.0-98.0); Mean Platelet Volume 9.2 fL (9.4-12.4); Monocytes Absolute Auto 0.4 X10*3/uL (0.1-1.2); Monocytes Percent Auto 6.7 % (2-11); Neutrophils Absolute Auto 2.5 x10*3/uL (2.0-8.3); Neutrophils Percent Auto 47.7 % (45-73); Platelet Count 237 X10*3/uL (160-400); Red Blood Count 4.55 X10*6/uL (4.60-5.80); Red Cell Distribution Width 12.2 % (11.0-16.0); White Blood Count 5.2 X10*3/uL (4.8-10.8)
[2024-02-10 00:03] LABS: Anion Gap 11 (12-20); Blood Urea Nitrogen 13 mg/dL (9-16); Calcium 9.4 mg/dL (8.4-10.2); Carbon Dioxide 29 mmol/L (22-29); Chloride 105 mmol/L (96-108); Creatinine Clr Calc Pharmacy 112.5; Estimated Glomerular Filt Rate > 60; Glucose Random 97 mg/dL (60-115); Potassium 3.9 mmol/L (3.3-5.1); Sodium 141 mmol/L (135-145)
--- NOTE | 2024-02-10 00:57 | ED.GIBLEED ---
HPI - GI Bleed General Chief complaint: GI Bleed Stated complaint: rectal bleeding/treated but hasn't stopped Time Seen by Provider: 02/10/24 00:57 Source: patient Mode of arrival: ambulatory Limitations: no limitations History of Present Illness HPI Narrative: 18-year-old male who presents emergency department for evaluation of rectal bleeding x3 months. The patient states that he spends approximately 15-20 minutes moving his bowels, he moves his bowels once or twice a day. He states that often his bowel movements are hard and he notices bright red blood in the toilet around the stool. He states he did see his PCP and was started on Colace but this is not improved his symptoms. He has not been able to follow-up with the GI doctor since he was unable to get an appointment. He states that he has had no weight loss or weight gain, he denied fever, chills or night sweats. He has not aware of any family history of colon cancer or GI cancer. Related Data Previous Rx's Medication Instructions Recorded docusate sodium 100 mg capsule 100 mg PO BID 30 days #60 caps 02/10/24 (Colace) hydrocortisone 2.5 % topical cream 1 appl AL BID PRN after each bowel 02/10/24 with perineal applicator movement #30 grams (Proctozone-HC) Allergies Allergy/AdvReac Type Severity Reaction Status Date / Time No Known Allergies Allergy Verified 02/09/24 22:22 Review of Systems Review of Systems: Yes all other systems are reviewed and are negative [facility] Past Medical History [facility] Narrative: Social history: The patient does vape nicotine products and marijuana products. He denies alcohol use. Denies other drug use. Social History Social History Advance Directives: No Advance Directives Information Provided: No Physical Exam Vital Signs: Vital Signs: Last Vital Signs Temp 98.8 F 02/09/24 22:22 Pulse 67 02/09/24 22:22 Resp 18 02/09/24 22:22 BP 114/66 02/09/24 22:22 Pulse Ox 99 02/09/24 22:22 O2 Del Method Room Air 02/09/24 22:22 BMI result Body Mass Index 20.7 Vital signs Exam: General: Awake, alert in no distress Head: Normocephalic, atraumatic EENT: PERRL, Lids normal, sclera normal, conjunctiva normal, nose normal , ears normal, throat without erythema or exudates Lung: breath sounds symmetric, no wheezing, rales or rhonchi Heart: regular rate and rhythm, normal S1, S2 no murmurs or rubs Abdomen: soft, non-tender, nondistended, normal bowel sounds Rectal exam: No external hemorrhoids noted, digital exam revealed no masses, stool was brown but strongly Hemoccult positive Back: no vertebral tenderness, no CVAT Psych: Pleasant, cooperative Medical Decision Making Medical Decision Making MDM Narrative: 18-year-old male who presents emergency department for evaluation of 3 months of bright red blood per rectum mainly after having bowel movements. Patient had no concerning systemic symptoms such as fever, chills, night sweats, weight loss or weight gain. Abdominal exam was unremarkable. Rectal exam revealed no external hemorrhoids, digital exam revealed no masses but the patient does have Hemoccult-positive stool. Differential diagnosis: ?Includes but is not limited to internal hemorrhoids, external hemorrhoids, polyps, AVM, rectal cancer, colon cancer Following evaluation was ordered: CBC, BMP Course: :34 My interpretation patient's laboratory evaluation is as follows: WBC was normal 5200. Normocytic anemia with an H&H of 13 and 39 with MCV of 86. Platelet count was normal 237,000. BMP was normal. Patient most likely has internal hemorrhoids or a bleeding polyp and I did discuss this with him. Patient was started on Colace 100 mg twice a day for 1 month, Metamucil 1 tsp in 8 oz of water twice a day, Proctozone 2.5% hydrocortisone cream after each bowel movement in twice a day. Patient will be referred to our on-call lubricating specialist to see if an appointment for further evaluation. Admission/Observation Consideration of admission/observation: Escalation of care including admission/observation considered Lab Data [facility] Lab Attestation statement: I reviewed the patient's lab results. 02/09/24 23:45 02/09/24 23:45 Labs: Lab Results 02/09/24 Range/Units 23:45 WBC 5.2 (4.8-10.8) X10*3/uL RBC 4.55 L (4.60-5.80) X10*6/uL Hgb 13.5 L (14.0-18.0) g/dl Hct 39.4 L (42.0-52.0) % MCV 86.6 (80.0-98.0) fL MCH 29.7 (27.0-33.0) pg MCHC 34.3 (31.0-36.0) g/dl RDW 12.2 (11.0-16.0) % Plt Count 237 (160-400) X10*3/uL MPV 9.2 L (9.4-12.4) fL Immature Gran % (Auto) 0.2 (0.0-0.4) % Neut % (Auto) 47.7 (45-73) % Lymph % (Auto) 41.7 H (20-40) % [place] % (Auto) 6.7 (2-11) % Eos % (Auto) 2.9 (0-4) % Baso % (Auto) 0.8 (0-2) % Lymph # (Auto) 2.2 (1.2-4.9) X10*3/uL [place] # (Auto) 0.4 (0.1-1.2) X10*3/uL Eos # (Auto) 0.2 (0.0-0.4) X10*3/uL Baso # (Auto) 0.0 (0.0-0.2) X10*3/uL Abs Immat Gran (auto) 0.01 (0.00-0.03) X10*3/uL Absolute Neuts (auto) 2.5 (2.0-8.3) x10*3/uL Absolute Nucleated RBC 0.000 (0.0-0.012) X10*3/uL Nucleated RBC % (auto) 0.0 (0.0-0.2) /100WBC Sodium 141 (135-145) mmol/L Potassium 3.9 (3.3-5.1) mmol/L Chloride 105 (96-108) mmol/L Carbon Dioxide 29 (22-29) mmol/L Anion Gap 11 L (12-20) BUN 13 (9-16) mg/dL Creatinine 0.98 (0.5-1.4) mg/dL Estim Creat Clear Calc 112.5 Estimated GFR > 60 Random Glucose 97 (60-115) mg/dL Calcium 9.4 (8.4-10.2) mg/dL Independent Historian Clinical information obtained from an independent historian. History obtained from or confirmed by: Spouse Prescription Management I considered prescription management with: Other (Hemorrhoid cream) Discharge Plan Discharge Clinical Impression: Hematochezia Patient Disposition: Home, Self-Care Instructions: Hemorrhoids (ED) Additional Instructions: Your blood work was normal except for mild anemia (low red blood cell count) Your rectal exam did not reveal any external hemorrhoids but I suspect that you have internal hemorrhoids. Your stool test for blood was positive which goes along with you seeing blood after each bowel movement. Take Colace (docusate) 100 mg pills, 1 pill twice a day, this is a stool softener in you should stay on this for at least 1 month. Use Metamucil fiber supplement or generic brand 1 tsp in 8 oz of water twice a day for 1 month. Also increase the amount of fluid that you drink to help soften your stool. You should not spend any more than 5-10 minutes trying to poop. The more time that you sit on the toilet and try to poop the more pressure that it puts on hemorrhoids and this will cause more bleeding. Use Proctozone (hydrocortisone) 2.5% hemorrhoid cream, use the applicator and apply the cream after each bowel movement and twice a day. Do this for at least 2 weeks. Call our GI doctor on-call to see if they can follow you up in their office to further evaluate your rectal bleeding. Follow-up with your doctor in 2 days. Please return to the emergency department if your symptoms get worse or if you develop any symptoms that are concerning to you. Prescriptions: New docusate sodium [Colace] 100 mg capsule 100 mg PO BID 30 Days Qty: 60 0RF hydrocortisone [Proctozone-HC] 2.5 % cream with perineal applicator 1 appl AL BID PRN (Reason: after each bowel movement) Qty: 30 1RF Referrals: Zakia De La Rosa MD [Physician] - 2 weeks (Rectal bleed after bowel movements times 3 months)
== END 2024-02-10 02:15 | disposition home or self-care (01) ==
PROVIDERS: Emergency Provider Emergency Medicine Emergency Medical Services
DX: K92.1 Melena (principal); Z79.899 Other long term (current) drug therapy
CPT/HCPCS: 36415; 80048; 85025; 99282; 99283

== ENCOUNTER 2025-03-04 14:26 | Emergency (ER) | payer OTHER, SELFPAY ==
[2025-03-04 14:41] VITALS: BP 139/80; PULSE 89; RESP 18; TEMP 36.8; O2SAT 99; BMI 20.4
--- NOTE | 2025-03-04 14:47 | ED.DENTAL ---
HPI - Dental/Oral General Chief complaint: Dental/Oral Stated complaint: dental pain Time Seen by Provider: 03/04/25 14:49 Source: patient, RN notes reviewed and old records reviewed Mode of arrival: ambulatory Limitations: no limitations History of Present Illness ED Provider: Kelly [facility] Narrative: Patient is a 19-year-old male presenting with complaint of right upper jaw pain. States today he noted gingival swelling. Has called his dentist, has been on amoxicillin, was told he can be seen next week. When he called the office today they referred him to the ED. Denies fevers. Denies difficulty swallowing. MD Complaint: tooth pain Teeth map: 1. gingival erythema and fluctuance Treatment prior to arrival: other Related Data Previous Rx's ?Medication ?Instructions ?Recorded docusate sodium 100 mg capsule 100 mg PO BID 30 days #60 caps 02/10/24 (Colace) hydrocortisone 2.5 % topical cream 1 appl [place] BID PRN after each bowel 02/10/24 with perineal applicator movement #30 grams (Proctozone-HC) clindamycin HCl 150 mg capsule 450 mg (3 x 150 mg) PO TID 7 days 03/04/25 #63 caps Allergies Allergy/AdvReac Type Severity Reaction Status Date / Time No Known Allergies Allergy Verified 03/04/25 14:45 Review of Systems Review of Systems: As per HPI Yes all other systems are reviewed and are negative Constitutional: Constitutional: Reports as per HPI [facility] Social History Social History Advance Directives: No Advance Directives Information Provided: No Do you have a plan to hurt others: No Plan Physical Exam Vital Signs: Vital Signs: Last Vital Signs Temp 98.3 F 03/04/25 14:41 Pulse 89 03/04/25 14:41 Resp 18 03/04/25 14:41 BP 139/80 03/04/25 14:41 Pulse Ox 99 03/04/25 14:41 O2 Del Method Room Air 03/04/25 14:41 BMI result Body Mass Index 20.4 Vital signs have been reviewed and appear to be correct. Blood pressure normal. Heart rate normal. Respiratory rate normal. Temperature normal. Oxygen saturation normal. Const: General: cooperative, healthy appearing and no acute distress Orientation/consciousness: oriented to person, oriented to place, oriented to time and patient oriented x3 Limitations: no limitations HEENT: Head: Yes normocephalic and Yes atraumatic Ears: external ears normal General nose exam: Normal external nose present Face and sinus: Yes face symmetric Mouth: oropharynx normal, moist mucous membranes, no drooling and no trismus Teeth and gingiva: abnormal tooth and associated gingiva (tooth #3) upper right tender, with associated gingival edema and with associated gingival fluctuance Throat: Yes posterior oropharynx normal and Yes uvula midline Eyes: Pupils: Equal, round and reactive pupils present Neck: Neck: Yes normal visual inspection and Yes supple Resp: Effort & Inspection: normal respiratory effort and able to speak in complete sentences Auscultation: clear to auscultation bilaterally Cardio: Rate: regular rate Rhythm: regular rhythm Heart sounds: S1 normal heart sound present and S2 normal heart sound present GI: Palpation (GI): Soft to palpation and nontender Auscultation: normoactive bowel sounds : General: Yes no CVA tenderness Back/Spine/Pelvis: Back: no CVA tenderness Skin: General skin exam: elasticity normal and turgor normal Neuro: General: oriented to person, oriented to place, oriented to time, patient oriented x3, moves all extremities, no focal motor deficits and CN's II-XI intact bilaterally Cranial nerves: Yes Equal, round and reactive pupils present Cognition (Neuro): normal cognition Extrem: General: Yes full ROM, Yes no pedal edema and Yes no calf tenderness Psych: Mental Status: mental status grossly normal Affect: normal affect Thought process: Normal thought process present Medical Decision Making Medical Decision Making [facility] Narrative: Patient is a 19-year-old male presenting with complaint of right upper jaw pain. On exam patient is awake, A+Ox3, VS WNL, afebrile, normal neurological exam without focal deficits, physical exam findings as above. Given reported symptoms and physical exam findings, initial differential includes but is not limited to toothache, dental infection, dental abscess. Visible abscess drained with needle aspiration as per procedure note. Will change patient to clindamycin. Patient called dentist while in the ED and has follow up appointment on 03/07. Return precautions discussed. Patient verbalized understanding of and agreement with plan. Differential Diagnosis Differential Diagnoses: The differential diagnosis associated with the presentation includes As per [facility] External Record Review External record reviewed: Inpatient record, Office record and Outpatient record Prescription Management I considered prescription management with: Antibiotic Procedures Abscess I/D Site: oral Side (if applicable): right Local Anesthetic: other anesthetic (topical lidocaine) Technique: needle aspiration Amount of fluid expressed (mL): 0.5 Sent for culture/gram staining?: No Irrigation: Yes Packing used?: none Discharge Plan Discharge Clinical Impression: Dental abscess Patient Disposition: Home, Self-Care Instructions: Dental Abscess (ED) Additional Instructions: You were evaluated in the emergency department today for dental pain. You have an abscess, which is a collection of pus, which was drained today. We are changing you to a different antibiotic. Take the full course as prescribed. Call your dentist to schedule a follow up appointment as soon as possible. Return to the emergency department if you develop increased swelling, pain, fever, difficulty opening or closing your mouth, difficulty swallowing, or any other new or concerning symptoms. Call or visit any of the clinics below to establish care with a dentist: [facility] [address] [place] [address] [facility] [address] [facility], [address] [address] [facility] [address] [place] [id number] [facility] [address] [place] [address] [place] [address] [place] [address] Prescriptions: New clindamycin HCl 150 mg capsule 450 mg PO TID 7 Days Qty: 63 0RF No Action docusate sodium [Colace] 100 mg capsule 100 mg PO BID 30 Days Qty: 60 0RF hydrocortisone [Proctozone-HC] 2.5 % cream with perineal applicator 1 appl [place] BID PRN (Reason: after each bowel movement) Qty: 30 1RF Print Language: [place]
[2025-03-04 15:26] VITALS: BP 139/80; PULSE 89; RESP 18; TEMP 36.8; O2SAT 99
== END 2025-03-04 15:27 | disposition home or self-care (01) ==
PROVIDERS: Emergency Provider Emergency Medicine
DX: K04.7 Periapical abscess without sinus (principal); K08.89 Other specified disorders of teeth and supporting structures; R68.84 Jaw pain
CPT/HCPCS: 10160; 99282; 99283; 99284

== ENCOUNTER 2025-03-28 20:42 | Emergency (ER) | payer OTHER, SELFPAY ==
[2025-03-28 20:50] VITALS: BP 128/69; PULSE 76; RESP 18; TEMP 37.5; O2SAT 98; BMI 19.9
--- NOTE | 2025-03-28 20:56 | ED_ITS ---
HPI - General Adult General Chief complaint: General Medical Stated complaint: Bubbles in urine, bloody stool Time Seen by Provider: 03/28/25 21:12 Source: patient Mode of arrival: ambulatory Limitations: no limitations History of Present Illness ED Provider: HPI narrative: Patient has been history of hemorrhoids with off and on rectal bleed when he wipes going on for more than 1 year has not seen his PCP does have history of constipation also feeling that urine is foamy no dysuria Related Data Previous Rx's ?Medication ?Instructions ?Recorded docusate sodium 100 mg capsule 100 mg PO BID 30 days #60 caps 02/10/24 (Colace) hydrocortisone 2.5 % topical cream 1 appl [place] BID PRN after each bowel 02/10/24 with perineal applicator movement #30 grams (Proctozone-HC) clindamycin HCl 150 mg capsule 450 mg (3 x 150 mg) PO TID 7 days 03/04/25 #63 caps Allergies Allergy/AdvReac Type Severity Reaction Status Date / Time No Known Allergies Allergy Verified 03/28/25 20:55 Review of Systems 2 Review of Systems: Yes all other systems are reviewed and are negative [facility] Social History Social History Smoked in Last 30 Days: No Use of substances other than those prescribed or required for medical reasons: No Advance Directives: No Advance Directives Information Provided: No Physical Exam ED Vital Signs: Vital Signs - 24 hr 03/28/25 20:50 03/28/25 22:22 Temperature 99.5 F 98.4 F Pulse Rate 76 65 Respiratory Rate 18 18 Blood Pressure 128/69 115/60 Pulse Oximetry 98 99 Oxygen Delivery Method Room Air Room Air BMI result Body Mass Index 19.9 Appearance: Alert. Oriented X3. No acute distress. Eyes: No pallor or ENT: Pharynx normal. Oral Mucosa moist Neck: Normal inspection. Neck supple. CVS: Normal heart rate and rhythm. Pulses normal. Respiratory: No respiratory distress. Equal air entry bilateral, no wheezing/rales/rhonchi Abdomen: Soft and nontender. Bowel sounds are present, no mass palpable, no CVA tenderness Skin: Skin warm and dry. Normal skin color. Normal skin turgor. Extremities: No lower extremity edema. No calf tenderness Neuro: Oriented X 3. No motor deficit. Course Course Course Narrative: RME: 19 yold male presents to the ED for blood in stool and secondary complaints of bubbles in urine without any dysuria, hemautira, , testicular pain, or recent trauma. patient not in distress. labs, UA, and POC. Medical Decision Making Medical Decision Making [facility] Narrative: Patient with internal hemorrhoids prescribe Anusol suppository advised avoid constipation follow with PCP urine was negative Lab Data MDM Lab Attestation statement: I reviewed the patient's lab results. 03/28/25 21:14 03/28/25 21:14 Labs: Lab Results 03/28/25 Range/Units 21:14 WBC 6.4 (4.8-10.8) X10*3/uL RBC 4.42 L (4.60-5.80) X10*6/uL Hgb 12.9 L (14.0-18.0) g/dl Hct 37.3 L (42.0-52.0) % MCV 84.4 (80.0-98.0) fL MCH 29.2 (27.0-33.0) pg MCHC 34.6 (31.0-36.0) g/dl RDW 13.1 (11.0-16.0) % Plt Count 242 (160-400) X10*3/uL MPV 9.0 L (9.4-12.4) fL Immature Gran % (Auto) 0.2 (0.0-0.4) % Neut % (Auto) 63.5 (45-73) % Lymph % (Auto) 28.1 (20-40) % [place] % (Auto) 6.6 (2-11) % Eos % (Auto) 0.8 (0-4) % Baso % (Auto) 0.8 (0-2) % Lymph # (Auto) 1.8 (1.2-4.9) X10*3/uL [place] # (Auto) 0.4 (0.1-1.2) X10*3/uL Eos # (Auto) 0.1 (0.0-0.4) X10*3/uL Baso # (Auto) 0.1 (0.0-0.2) X10*3/uL Abs Immat Gran (auto) 0.01 (0.00-0.03) X10*3/uL Absolute Neuts (auto) 4.0 (2.0-8.3) x10*3/uL Absolute Nucleated RBC 0.000 (0.0-0.012) X10*3/uL Nucleated RBC % (auto) 0.0 (0.0-0.2) /100WBC Sodium 141 (135-145) mmol/L Potassium 3.8 (3.3-5.1) mmol/L Chloride 106 (96-108) mmol/L Carbon Dioxide 26 (22-29) mmol/L Anion Gap 13 (12-20) BUN 12 (9-16) mg/dL Creatinine 0.81 (0.5-1.4) mg/dL Estim Creat Clear Calc 132.0 Estimated GFR > 60 Random Glucose 78 (60-115) mg/dL Calcium 9.3 (8.4-10.2) mg/dL Total Bilirubin 0.3 (0.0-1.0) mg/dL AST 22 (5-37) U/L ALT 28 (0-40) U/L Alkaline Phosphatase 106 (39-117) U/L Total Protein 7.3 (6.5-8.0) g/dL Albumin 4.3 (3.5-5.0) g/dL Urine Color Yellow Urine Appearance Turbid Urine pH 8.0 (5.0-9.0) Ur Specific [place] 1.025 (1.005-1.025) Urine Protein 100 (2+) H (Neg-Trace) mg/dL Urine Glucose (UA) Negative (Negative) mg/dL Urine Ketones Trace (Negative) mg/dL Urine Blood Negative (Negative) Urine Nitrite Negative (Negative) Ur Leukocyte Esterase Negative (Negative) Urine RBC 0-2 (0-2) /HPF Urine WBC 0-5 (0-5) /HPF Ur Squamous Epith Cells 0-2 (0-2) /HPF Urine Bacteria None Seen (None Seen) Hyaline Casts 0-2 (0-2) /LPF Discharge Plan Discharge Clinical Impression: Bleeding hemorrhoids Patient Disposition: Home, Self-Care Instructions: Hemorrhoids (ED) Additional Instructions: Avoid constipation Use suppository twice a day untill heals follow up with [facility] Prescriptions: No Action docusate sodium [Colace] 100 mg capsule 100 mg PO BID 30 Days Qty: 60 0RF hydrocortisone [Proctozone-HC] 2.5 % cream with perineal applicator 1 appl MD BID PRN (Reason: after each bowel movement) Qty: 30 1RF clindamycin HCl 150 mg capsule 450 mg PO TID 7 Days Qty: 63 0RF Interventions: ED Discharge Assessment Last Done: 03/28/25 22:22 Discharge Date/Time: 03/28/25 22:23 Print Language: [place]
[2025-03-28 21:18] LABS: MANUAL DIFF FLAG NO
[2025-03-28 21:19] LABS: Basophils Absolute Auto 0.1 X10*3/uL (0.0-0.2); Basophils Percent Auto 0.8 % (0-2); Eosinophils Absolute Auto 0.1 X10*3/uL (0.0-0.4); Eosinophils Percent Auto 0.8 % (0-4); Hematocrit 37.3 % (42.0-52.0); Hemoglobin 12.9 g/dl (14.0-18.0); Imm Gran Abs Auto 0.01 X10*3/uL (0.00-0.03); Imm Gran Pct Auto 0.2 % (0.0-0.4); Lymphocytes Absolute Auto 1.8 X10*3/uL (1.2-4.9); Lymphocytes Percent Auto 28.1 % (20-40); Mean Corpuscular HGB Conc 34.6 g/dl (31.0-36.0); Mean Corpuscular Hemoglobin 29.2 pg (27.0-33.0); Mean Corpuscular Volume 84.4 fL (80.0-98.0); Monocytes Absolute Auto 0.4 X10*3/uL (0.1-1.2); Monocytes Percent Auto 6.6 % (2-11); Neutrophils Percent Auto 63.5 % (45-73); Platelet Count 242 X10*3/uL (160-400); Red Blood Count 4.42 X10*6/uL (4.60-5.80); Red Cell Distribution Width 13.1 % (11.0-16.0); White Blood Count 6.4 X10*3/uL (4.8-10.8)
[2025-03-28 21:29] LABS: Appearance Urine Turbid; Color Urine Yellow; Glucose Urine UA Negative (Negative); Leukocyte Esterase Urine Negative (Negative); Nitrite Urine Negative (Negative); Specific Gravity - Urine 1.025 (1.005-1.025); UMIC TRIGGER UACC YES; Urine Blood Negative (Negative); Urine Ketones Trace mg/dL (Negative); Urine Protein 100 (2+) mg/dL (Neg-Trace)
[2025-03-28 21:34] LABS: Bacteria Urine None Seen (None Seen); Hyaline Casts Urine 0-2 /LPF (0-2); RBC Urine 0-2 /HPF (0-2); Squamous Epithelial Cell Urine 0-2 /HPF (0-2); WBC Urine 0-5 /HPF (0-5)
[2025-03-28 21:43] LABS: Alanine Aminotransferase 28 U/L (0-40); Albumin Level 4.3 g/dL (3.5-5.0); Alkaline Phosphatase 106 U/L (39-117); Anion Gap 13 (12-20); Aspartate Amino Transferase 22 U/L (5-37); Bilirubin Total 0.3 mg/dL (0.0-1.0); Blood Urea Nitrogen 12 mg/dL (9-16); Calcium 9.3 mg/dL (8.4-10.2); Carbon Dioxide 26 mmol/L (22-29); Chloride 106 mmol/L (96-108); Estimated Glomerular Filt Rate > 60; Glucose Random 78 mg/dL (60-115); Potassium 3.8 mmol/L (3.3-5.1); Sodium 141 mmol/L (135-145); Total Protein 7.3 g/dL (6.5-8.0)
[2025-03-28 22:22] VITALS: BP 115/60; PULSE 65; RESP 18; TEMP 36.9; O2SAT 99
== END 2025-03-28 22:23 | disposition home or self-care (01) ==
PROVIDERS: Physician Assistant; Emergency Provider Internal Medicine
DX: K64.8 Other hemorrhoids (principal); K62.5 Hemorrhage of anus and rectum
CPT/HCPCS: 36415; 80053; 81001; 85025; 99283; 99284